=== PATIENT | female | born 1960 | race African-American/Black ===

== ENCOUNTER 2016-07-20 11:51 | Emergency (ER) | payer MEDICAID ==
[~2016-07-20] VITALS: Ht 157.5 cm; Wt 106.6 kg
[~2016-07-20 11:51] MED LIST: ASPI81CH43 PO; BENA20TA4; NOVOLIN 70/30 SUBCUT; SIMVPOW2 PO
[2016-07-20 14:20] VITALS: BP 132/80
== END 2016-07-20 14:22 | disposition home or self-care (01) ==
LOC: ER 11:54
DX: M75.42 Impingement syndrome of left shoulder (principal); E11.9 Type 2 diabetes mellitus without complications; E78.5 Hyperlipidemia, unspecified; I10 Essential (primary) hypertension; Z90.710 Acquired absence of both cervix and uterus; Z87.891 Personal history of nicotine dependence; Z88.6 Allergy status to analgesic agent
CPT/HCPCS: 29105; 73030

== ENCOUNTER 2016-10-31 12:58 | Emergency (ER) | payer MEDICAID ==
[~2016-10-31] VITALS: Ht 157.5 cm; Wt 100.7 kg
[2016-10-31 15:00] VITALS: BP 137/71
== END 2016-10-31 16:00 | disposition home or self-care (01) ==
LOC: ER 12:58
DX: S63.602A Unspecified sprain of left thumb, initial encounter (principal); X50.1XXA Overexertion from prolonged static or awkward postures, initial encounter; Y93.B9 Activity, other involving muscle strengthening exercises; Y99.8 Other external cause status; Y92.89 Other specified places as the place of occurrence of the external cause
CPT/HCPCS: 73130

== ENCOUNTER 2016-11-20 14:50 | Emergency (ER) | payer MEDICAID ==
[~2016-11-20] VITALS: Ht 157.5 cm; Wt 101.2 kg
[~2016-11-20 14:50] MED LIST changes: +BENA20TA14; -BENA20TA4
[2016-11-20 15:01] VITALS: BP 127/84
[2016-11-20] MEDS ORDERED: SILVER SULFADIAZINE 1 % TOPICAL CREAM 50GM TOP ONE (17:30)
== END 2016-11-20 17:53 | disposition home or self-care (01) ==
LOC: EDBD 14:50 → ER 14:55
DX: T25.212A Burn of second degree of left ankle, initial encounter (principal); T31.11 Burns involving 10-19% of body surface with 10-19% third degree burns; E11.9 Type 2 diabetes mellitus without complications; I10 Essential (primary) hypertension; E78.5 Hyperlipidemia, unspecified; Z88.0 Allergy status to penicillin; Z79.4 Long term (current) use of insulin; Z79.82 Long term (current) use of aspirin; Z79.899 Other long term (current) drug therapy; Z87.891 Personal history of nicotine dependence; X11.8XXA Contact with other hot tap-water, initial encounter; Y93.89 Activity, other specified; Y92.89 Other specified places as the place of occurrence of the external cause; Y99.8 Other external cause status
CPT/HCPCS: 16020

== ENCOUNTER 2017-06-07 14:21 | Emergency (ER) | payer MEDICAID ==
[~2017-06-07] VITALS: Ht 157.5 cm; Wt 99.8 kg
[2017-06-07 15:10] LABS: Urine Bilirubin Negative (Negative); Urine Blood Negative /uL (Negative); Urine Color Yellow (Yellow); Urine Glucose 4+ mg/dL (Normal); Urine Ketone Negative (Negative); Urine Nitrite Negative (Negative); Urine RBC 1 /hpf (0 - 4); Urine Squamous Epithelial Cell FEW /hpf (<5); Urine Urobilinogen Normal (Negative)
[2017-06-07 15:12] LABS: Basophils # (auto) 0 uL; Eosinophils # (auto) 0 uL; Lymphocytes # (auto) 1.5 uL; Monocytes # (auto) 0.4 uL; Red Cell Distribution Width 13.6 % (11.8-14.3)
[2017-06-07 15:14] LABS: Basophils % (auto) 0.7 % (0.0-2.0); Eosinophils % (auto) 0.9 % (0.0-7.0); Lymphocytes % (auto) 30.1 % (10.0-50.0); Mean Corpuscular Hemoglobin 26.9 pg (28.0-32.0); Mean Corpuscular Hgb Conc. 32.7 g/dL (32.0-36.0); Mean Corpuscular Volume 82.3 fL (80.0-100.0); Mean Platelet Volume 9.1 fL (6.9-10.8); Monocytes % (auto) 7.6 % (0.0-12.0); Neutrophils % (auto) 60.7 % (37.0-80.0); Nucleated Red Blood Cells % 0.2 %; Platelet Count (auto) 185 10^3/uL (140-450); White Blood Cell 4.9 10^3/uL (4.4-10.8)
[2017-06-07 15:33] LABS: Albumin 3.8 g/dL (3.4-5.0); BUN/Creatinine Ratio 15.5; Bilirubin, Total 0.3 mg/dL (0.2-1.0); Calcium 8.7 mg/dL (8.5-10.1); Potassium 4.1 mmol/L (3.5-5.1); Total Protein 7.5 g/dL (6.4-8.2)
[2017-06-08] MEDS: MORPHINE SULF INJ 2 MG/ML SYRINGE 1ML IV ONE (00:55)
[2017-06-08] MEDS: HYDROmorphone HCL 2 MG/ML VL IV ONE (01:01)
[2017-06-08] MEDS: ONDANSETRON HCL 4 MG/2 ML VIAL IV ONE ×2 (01:01→03:10)
[2017-06-08] MEDS: SODIUM CHLORIDE 0.9% 1,000 ML IV ONE (03:10)
[2017-06-08 04:20] VITALS: BP 150/87
== END 2017-06-08 05:05 | disposition home or self-care (01) ==
LOC: ER 14:21
DX: N83.201 Unspecified ovarian cyst, right side (principal); N83.202 Unspecified ovarian cyst, left side; I10 Essential (primary) hypertension; E11.9 Type 2 diabetes mellitus without complications; E78.5 Hyperlipidemia, unspecified; Z90.710 Acquired absence of both cervix and uterus; Z87.891 Personal history of nicotine dependence; Z79.82 Long term (current) use of aspirin; Z79.4 Long term (current) use of insulin; Z88.6 Allergy status to analgesic agent
CPT/HCPCS: 36415; 74176; 76830; 76856; 80053; 81001; 82962; 85025; 96361; 96374; 96375; 96376; 99285; J1170; J2405; J7030

== ENCOUNTER 2017-08-12 20:58 | Emergency (ER) | payer MEDICAID ==
[~2017-08-12] VITALS: Ht 170.2 cm; Wt 90.7 kg
[2017-08-12 21:09] VITALS: BP 140/86
== END 2017-08-12 21:28 | disposition left against medical advice (07) ==
LOC: EDBD 20:58 → ER 21:02
DX: M25.532 Pain in left wrist (principal); Z53.21 Procedure and treatment not carried out due to patient leaving prior to being seen by health care provider

== ENCOUNTER 2017-08-13 08:40 | Emergency (ER) | payer MEDICAID ==
[~2017-08-13] VITALS: Ht 157.5 cm; Wt 101.2 kg
[2017-08-13 09:46] VITALS: BP 152/69
== END 2017-08-13 10:56 | disposition home or self-care (01) ==
LOC: ER 08:40
DX: G56.01 Carpal tunnel syndrome, right upper limb (principal); E11.9 Type 2 diabetes mellitus without complications; E78.5 Hyperlipidemia, unspecified; I10 Essential (primary) hypertension; Z90.710 Acquired absence of both cervix and uterus; Z88.8 Allergy status to other drugs, medicaments and biological substances
CPT/HCPCS: 73130

== ENCOUNTER 2018-01-14 09:39 | Emergency (ER) | payer MEDICAID ==
[~2018-01-14] VITALS: Ht 157.5 cm; Wt 99.3 kg
[2018-01-14 11:09] VITALS: BP 133/61
== END 2018-01-14 14:01 | disposition home or self-care (01) ==
LOC: ER 09:41
DX: R21 Rash and other nonspecific skin eruption (principal); E11.9 Type 2 diabetes mellitus without complications; E78.5 Hyperlipidemia, unspecified; I10 Essential (primary) hypertension; Z88.6 Allergy status to analgesic agent; Z79.899 Other long term (current) drug therapy; Z90.710 Acquired absence of both cervix and uterus; Z87.891 Personal history of nicotine dependence

== ENCOUNTER 2022-10-11 17:40 | Inpatient (IN) | payer MEDICAID ==
[~2022-10-11] VITALS: Ht 157.5 cm; Wt 99.0 kg
[2022-10-11 18:34] LABS: Basophils # (auto) 0 10 ^3/uL (0-0.2); Basophils % (auto) 0.3 % (0.0-2.0); Eosinophils # (auto) 0 10 ^3/uL (0-0.8); White Blood Cell 8.2 10^3/uL (4.4-10.8)
[2022-10-11 18:35] LABS: Hematocrit 43.5 % (36.0-46.0); Hemoglobin 14.1 g/dL (12.2-16.2); Lymphocytes # (auto) 0.4 10 ^3/uL (0.4-5.4); Lymphocytes % (auto) 5.1 % (10.0-50.0); Mean Corpuscular Hemoglobin 27.2 pg (28.0-32.0); Mean Corpuscular Hgb Conc. 32.3 g/dL (32.0-36.0); Mean Corpuscular Volume 84.2 fL (80.0-100.0); Monocytes % (auto) 11.8 % (0.0-12.0); Neutrophils # (auto) 6.8 10 ^3/uL (1.6-8.6); Neutrophils % (auto) 82.8 % (37.0-80.0); Red Blood Cells 5.17 10^6/uL (4.0-5.20); Red Cell Distribution Width 13.7 % (11.8-14.3)
[2022-10-11 18:48] LABS: Albumin 3.1 g/dL (3.4-5.0); Calcium 8.9 mg/dL (8.5-10.1); Potassium 4.2 mmol/L (3.5-5.1)
[2022-10-11 18:57] LABS: Bilirubin, Total 0.8 mg/dL (0.2-1.0); Total Protein 7.1 g/dL (6.4-8.2)
[2022-10-11] MEDS ORDERED: SODIUM CHLORIDE 0.9% 1,000 ML IV ONE (19:45)
[2022-10-11] MEDS ORDERED: InsuLIN REG 1unit/0.01ml Soln (100units/ml) IV ONE (19:45)
[2022-10-11] MEDS ORDERED: cefTRIAXone 1GM/50ML D5W 50 ML IV ONE (20:00)
[2022-10-11] MEDS ORDERED: SODIUM BICARBONATE 8.4 % INJ 50ML VIAL IV ONE (20:00)
[2022-10-11 20:14] LABS: CRP High Sensitivity 28.8 mg/dL (< 0.3)
[2022-10-11 20:47] LABS: Urine Bacteria NONE SEEN /hpf (None Seen); Urine Blood 1+ /uL (Negative); Urine Hyaline Cast FEW /lpf (0 - 2); Urine Mucus FEW (None Seen); Urine Specific Gravity 1.023 (1.001-1.035); Urine WBC 2 /hpf (0 - 5)
[2022-10-11] MEDS ORDERED: DEXTROSE (50%) 50ML SYRG IV PRN (21:45)
[2022-10-11] MEDS ORDERED: InsuLIN R (HUMAN) 100 UNITS in SODIUM CHL 0.9% 99 ML IV SCH (21:45)
[2022-10-11] MEDS ORDERED: ONDANSETRON HCL 4 MG/2 ML VIAL IV ONE (21:45)
[2022-10-11 22:00] LABS: Magnesium 1.9 mg/dL (1.6-2.6); Phosphorus 2.4 mg/dL (2.5-4.90)
[2022-10-11] MEDS: ACCU-CHEK COMFORT CURVE STRIP VI SCH (22:43)
[2022-10-11] MEDS ORDERED: POTASSIUM CHL 20 Meq TABLET PO ONE (23:00)
[2022-10-11] MEDS: SODIUM CHLORIDE 0.9% 1,000 ML IV SCH ×2 (23:30→23:45)
[2022-10-11] MEDS ORDERED: HYDROcodone-ACET 5/325MG TAB PO PRN (23:45)
[2022-10-11] MEDS ORDERED: MORPHINE SULFATE INJ 2 MG/ml SYRG IV PRN (23:45)
[2022-10-11] MEDS ORDERED: NITROGLYCERIN 0.4 MG SL TAB SL PRN (23:45)
[2022-10-12] MEDS: ACCU-CHEK COMFORT CURVE STRIP VI SCH ×14 (00:01→19:52)
[2022-10-12] MEDS: METOCLOPRAMIDE HCL 5MG/ml INJ 2ml VIAL IV PRN ×3 (00:24→15:17)
[2022-10-12 00:59] LABS: Albumin 2.9 g/dL (3.4-5.0); BUN/Creatinine Ratio 17.1 (10.0-20.0); Calcium 9.2 mg/dL (8.5-10.1); Potassium 3.6 mmol/L (3.5-5.1)
[2022-10-12 01:02] LABS: Bilirubin, Total 0.6 mg/dL (0.2-1.0); Total Protein 7.9 g/dL (6.4-8.2)
[2022-10-12] MEDS: SODIUM CHLORIDE 0.9% 1,000 ML IV SCH ×3 (01:39→10:25)
[2022-10-12] MEDS ORDERED: SODIUM CHLORIDE 0.9% 1,000 ML IV SCH (01:45)
[2022-10-12] MEDS ORDERED: D5W/SOD CHL 0.45%/KCL 20MEQ 1,000 ML IV ONE ×2 (01:45→14:30)
[2022-10-12] MEDS: ONDANSETRON HCL 4 MG/2 ML VIAL IV PRN ×2 (03:11→08:06)
[2022-10-12] MEDS: ACETAMINOPHEN 325 MG TAB PO PRN ×3 (04:03→21:01)
[2022-10-12] MEDS: hydrALAZINE HCL 20 MG/ML VL IV PRN ×3 (04:20→22:08)
[2022-10-12] MEDS ORDERED: InsuLIN R (HUMAN) 100 UNITS in SODIUM CHL 0.9% 99 ML IV SCH (04:45)
[2022-10-12 05:48] LABS: Albumin 2.5 g/dL (3.4-5.0); Potassium 3.9 mmol/L (3.5-5.1)
[2022-10-12 05:50] LABS: BUN/Creatinine Ratio 18.2 (10.0-20.0)
[2022-10-12 05:53] LABS: Bilirubin, Total 0.6 mg/dL (0.2-1.0)
[2022-10-12 06:01] LABS: Basophils # (auto) 0 10 ^3/uL (0-0.2); Basophils % (auto) 0.4 % (0.0-2.0); Eosinophils # (auto) 0 10 ^3/uL (0-0.8); Hematocrit 36.3 % (36.0-46.0); Lymphocytes # (auto) 0.5 10 ^3/uL (0.4-5.4); Lymphocytes % (auto) 5.9 % (10.0-50.0); Mean Corpuscular Hemoglobin 27.2 pg (28.0-32.0); Mean Corpuscular Hgb Conc. 32.9 g/dL (32.0-36.0); Mean Corpuscular Volume 82.7 fL (80.0-100.0); Monocytes # (auto) 1.1 10 ^3/uL (0-1.3); Neutrophils % (auto) 78.7 % (37.0-80.0); Nucleated Red Blood Cells % 0.1 %; Red Cell Distribution Width 13.1 % (11.8-14.3); White Blood Cell 7.6 10^3/uL (4.4-10.8)
[2022-10-12] MEDS: ASPirin 81 mg TAB PO SCH (09:32)
[2022-10-12] MEDS ORDERED: MORPHINE SULFATE INJ 2 MG/ml SYRG IV ONE (10:15)
[2022-10-12] MEDS ORDERED: ONDANSETRON HCL 4 MG/2 ML VIAL IV ONE (10:15)
[2022-10-12] MEDS: FAMOTIDINE (10MG/ML) 2ML VL IV SCH (10:25)
[2022-10-12] MEDS ORDERED: DICYCLOMINE HCL (10MG/ML) 2 ML AMPULE IM PRN (10:45)
[2022-10-12] MEDS ORDERED: SODIUM PHOSPHATES 20 MEQ in SODIUM CHL 0.9% 100 ML IV ONE (10:45)
[2022-10-12] MEDS ORDERED: PROCHLORPERAZINE EDISYLATE 5 MG/ML 2ML VIAL IV PRN (10:45)
[2022-10-12] MEDS ORDERED: SODIUM CHLORIDE 0.9% 1,000 ML IV ONE (11:00)
[2022-10-12] MEDS ORDERED: INSULIN LANTUS (GLARGINE) 1 /0.01ml (100units/ml) SC ONE (11:00)
[2022-10-12 12:10] LABS: Calcium 8.8 mg/dL (8.5-10.1); Potassium 4.1 mmol/L (3.5-5.1)
[2022-10-12 12:11] LABS: Alcohol, Urine < 3.0 mg/dL (0-10); Amphetamine Screen, Urine NEGATIVE (NEGATIVE); Barbiturate Scree,Urine NEGATIVE (NEGATIVE); Benzodiazephine Screen, Urine NEGATIVE (NEGATIVE); Cannabinoid Screen, Urine NEGATIVE (NEGATIVE); Cocaine Screen, Urine NEGATIVE (NEGATIVE); Opiate Scree,Urine NEGATIVE (NEGATIVE); Phencyclidine Screen, Urine NEGATIVE (NEGATIVE)
[2022-10-12 12:12] LABS: BUN/Creatinine Ratio 14.3 (10.0-20.0)
[2022-10-12 12:59] LABS: Cholesterol 165 mg/dL (< 200); HDL Cholesterol 71 mg/dL (40-59); LDL Cholesterol 83 mg/dL (< 100); Triglycerides 63 mg/dL (< 150)
[2022-10-12] MEDS ORDERED: ENOXAPARIN SOD 120 MG/0.8 ML SYRINGE SC SCH ×2 (14:46→15:00)
[2022-10-12] MEDS ORDERED: IOHEXOL 350 MG/ML 100ML IJ ONE (14:57)
[2022-10-12 15:18] LABS: INR 0.99 (0.9-1.15)
[2022-10-12] MEDS ORDERED: ACETAMINOPHEN IV 1000 MG/100ML (10MG/ML) IV PRN ×2 (16:00→16:15)
[2022-10-12] MEDS ORDERED: SOD CHL 0.45% 1,000 ML IV SCH (16:15)
[2022-10-12] MEDS ORDERED: AZITHROMYCIN 500MG/ 250ML 250 ML IV ONE (16:45)
[2022-10-12 17:39] LABS: BUN/Creatinine Ratio 13.3 (10.0-20.0); Calcium 8.3 mg/dL (8.5-10.1); Potassium 3.3 mmol/L (3.5-5.1)
[2022-10-12] MEDS ORDERED: DEXTROSE (50%) 50ML SYRG IV PRN (20:30)
[2022-10-12] MEDS: cefTRIAXone 1GM/50ML D5W 50 ML IV SCH (21:45)
[2022-10-12] MEDS ORDERED: ATORVASTATIN 20 MG TAB PO SCH (22:00)
[2022-10-12] MEDS ORDERED: CARVEDILOL 12.5 MG TAB PO ONE (22:00)
[2022-10-12 23:35] LABS: BUN/Creatinine Ratio 10.8 (10.0-20.0); Calcium 8.3 mg/dL (8.5-10.1); Potassium 3.5 mmol/L (3.5-5.1)
[2022-10-13] MEDS: ACCU-CHEK COMFORT CURVE STRIP VI SCH ×6 (00:19→20:00)
[2022-10-13] MEDS: IPRATROPIUM BROM 0.5 MG/2.5ML INH SOL NEB PRN ×2 (00:26→04:46)
[2022-10-13] MEDS: ALBUTEROL SULF 2.5 MG/0.5ML(0.5%) NEB SOLN NEB PRN ×2 (00:26→04:47)
[2022-10-13] MEDS: InsuLIN REG 1unit/0.01ml Soln (100units/ml) SC SCH ×6 (00:27→20:49)
[2022-10-13] MEDS ORDERED: guaiFENesin-DM 100/10mg/5ml SYR PO ONE (03:15)
[2022-10-13 04:18] VITALS: BP 134/60
[2022-10-13] MEDS ORDERED: dilTIAZem 25 MG/5 ML VIAL IV ONE (05:00)
[2022-10-13] MEDS ORDERED: methylPREDNISolone SOD SUCC 125 MG/2 ML VL IV ONE (05:15)
[2022-10-13] MEDS ORDERED: dilTIAZem 125mg/125ml BAG KIT 100 ML IV SCH (05:45)
[2022-10-13 05:51] LABS: Basophils # (auto) 0 10 ^3/uL (0-0.2); Basophils % (auto) 0.2 % (0.0-2.0); Eosinophils # (auto) 0 10 ^3/uL (0-0.8); Hematocrit 36.6 % (36.0-46.0); Hemoglobin 12.2 g/dL (12.2-16.2); Lymphocytes # (auto) 0.3 10 ^3/uL (0.4-5.4); Lymphocytes % (auto) 3.7 % (10.0-50.0); Mean Corpuscular Hemoglobin 27.6 pg (28.0-32.0); Mean Corpuscular Hgb Conc. 33.2 g/dL (32.0-36.0); Mean Corpuscular Volume 83.2 fL (80.0-100.0); Monocytes # (auto) 0.8 10 ^3/uL (0-1.3); Monocytes % (auto) 11.1 % (0.0-12.0); Neutrophils # (auto) 5.9 10 ^3/uL (1.6-8.6); Nucleated Red Blood Cells % 0.1 %; Red Cell Distribution Width 13.8 % (11.8-14.3); White Blood Cell 6.9 10^3/uL (4.4-10.8)
[2022-10-13 06:10] LABS: Potassium 3.8 mmol/L (3.5-5.1)
[2022-10-13 06:17] LABS: Albumin 2.5 g/dL (3.4-5.0); Bilirubin, Total 0.6 mg/dL (0.2-1.0); Calcium 7.9 mg/dL (8.5-10.1); Magnesium 1.9 mg/dL (1.6-2.6); Phosphorus 1.2 mg/dL (2.5-4.90); Total Protein 5.9 g/dL (6.4-8.2)
[2022-10-13] MEDS: AZITHROMYCIN 500MG/ 250ML 250 ML IV SCH (09:22)
[2022-10-13] MEDS: ASPirin 81 mg TAB PO SCH (09:22)
[2022-10-13] MEDS ORDERED: ENOXAPARIN SOD 120 MG/0.8 ML SYRINGE SC SCH (10:00)
[2022-10-13] MEDS ORDERED: CARVEDILOL 12.5 MG TAB PO SCH (10:00)
[2022-10-13] MEDS: methylPREDNISolone SOD SUCC 40 MG/ML VL IV SCH ×2 (10:00→13:37)
[2022-10-13] MEDS: FAMOTIDINE (10MG/ML) 2ML VL IV SCH (10:00)
[2022-10-13] MEDS ORDERED: INSULIN LANTUS (GLARGINE) 1 /0.01ml (100units/ml) SC SCH (10:00)
[2022-10-13] MEDS ORDERED: VANCOMYCIN PER PHARMACY 0 MG IV SCH (14:15)
[2022-10-13] MEDS: VANCOMYCIN 1GM/250ML 250 ML IV SCH (15:39)
[2022-10-13] MEDS: ONDANSETRON HCL 4 MG/2 ML VIAL IV PRN ×2 (20:23→22:30)
[2022-10-13] MEDS: cefTRIAXone 1GM/50ML D5W 50 ML IV SCH (20:56)
[2022-10-13] MEDS ORDERED: GLIP5TAB12 PO (22:01)
[2022-10-13] MEDS: MORPHINE SULFATE INJ 2 MG/ml SYRG IV PRN (22:29)
[2022-10-13] MEDS: METOPROLOL TARTRATE 50 MG TAB PO SCH (22:30)
[2022-10-13] MEDS: ENOXAPARIN SOD 40 MG/0.4 ML SYRINGE SC SCH (22:30)
[2022-10-14] VITALS (7 sets, daily range): BP systolic 122–141; BP diastolic 61–72
[2022-10-14] MEDS: InsuLIN REG 1unit/0.01ml Soln (100units/ml) SC SCH ×6 (01:47→22:00)
[2022-10-14] MEDS: ACCU-CHEK COMFORT CURVE STRIP VI SCH ×9 (04:24→22:00)
[2022-10-14] MEDS: VANCOMYCIN 1GM/250ML 250 ML IV SCH ×2 (04:24→15:10)
[2022-10-14] MEDS: METOPROLOL TARTRATE 50 MG TAB PO SCH ×2 (09:04→22:05)
[2022-10-14] MEDS: ONDANSETRON HCL 4 MG/2 ML VIAL IV PRN (09:04)
[2022-10-14] MEDS: ASPirin 81 mg TAB PO SCH (09:04)
[2022-10-14] MEDS: MORPHINE SULFATE INJ 2 MG/ml SYRG IV PRN (09:05)
[2022-10-14] MEDS: ENOXAPARIN SOD 40 MG/0.4 ML SYRINGE SC SCH ×2 (09:06→22:05)
[2022-10-14] MEDS: INSULIN LANTUS (GLARGINE) 1 /0.01ml (100units/ml) SC SCH (09:13)
[2022-10-14] MEDS: AZITHROMYCIN 500MG/ 250ML 250 ML IV SCH (10:10)
[2022-10-14] MEDS: DOCUSATE SOD 100 MG CAP PO PRN ×2 (12:23→22:04)
[2022-10-14] MEDS ORDERED: DEXTROSE (50%) 50ML SYRG IV PRN (13:15)
[2022-10-14] MEDS: cefTRIAXone 1GM/50ML D5W 50 ML IV SCH (22:02)
[2022-10-15] MEDS: ACCU-CHEK COMFORT CURVE STRIP VI SCH ×10 (03:40→21:51)
[2022-10-15] MEDS: VANCOMYCIN 1GM/250ML 250 ML IV SCH ×2 (04:23→15:03)
[2022-10-15 05:00] VITALS: BP 121/64
[2022-10-15] MEDS: ONDANSETRON HCL 4 MG/2 ML VIAL IV PRN (06:32)
[2022-10-15] MEDS: MORPHINE SULFATE INJ 2 MG/ml SYRG IV PRN (06:39)
[2022-10-15] MEDS: InsuLIN REG 1unit/0.01ml Soln (100units/ml) SC SCH ×4 (06:40→22:00)
[2022-10-15 06:52] LABS: Basophils # (auto) 0 10 ^3/uL (0-0.2); Basophils % (auto) 0.3 % (0.0-2.0); Eosinophils # (auto) 0 10 ^3/uL (0-0.8); Eosinophils % (auto) 0.1 % (0.0-7.0); Hematocrit 38.2 % (36.0-46.0); Hemoglobin 12.7 g/dL (12.2-16.2); Lymphocytes # (auto) 1.1 10 ^3/uL (0.4-5.4); Lymphocytes % (auto) 14.8 % (10.0-50.0); Mean Corpuscular Hemoglobin 27.2 pg (28.0-32.0); Mean Corpuscular Hgb Conc. 33.1 g/dL (32.0-36.0); Mean Corpuscular Volume 82.2 fL (80.0-100.0); Monocytes # (auto) 1.1 10 ^3/uL (0-1.3); Monocytes % (auto) 13.8 % (0.0-12.0); Neutrophils # (auto) 5.5 10 ^3/uL (1.6-8.6); Nucleated Red Blood Cells % 0.1 %; Red Blood Cells 4.65 10^6/uL (4.0-5.20); White Blood Cell 7.7 10^3/uL (4.4-10.8)
[2022-10-15 07:11] LABS: BUN/Creatinine Ratio 22.4 (10.0-20.0); Calcium 8.6 mg/dL (8.5-10.1); Potassium 3.2 mmol/L (3.5-5.1)
[2022-10-15 08:00] VITALS: BP 148/69
[2022-10-15 09:00] VITALS: BP 148/69
[2022-10-15] MEDS: METOPROLOL TARTRATE 50 MG TAB PO SCH ×2 (09:43→21:45)
[2022-10-15] MEDS: AZITHROMYCIN 500MG/ 250ML 250 ML IV SCH (09:43)
[2022-10-15] MEDS: ASPirin 81 mg TAB PO SCH (09:43)
[2022-10-15] MEDS: ENOXAPARIN SOD 40 MG/0.4 ML SYRINGE SC SCH ×2 (09:44→21:39)
[2022-10-15] MEDS: INSULIN LANTUS (GLARGINE) 1 /0.01ml (100units/ml) SC SCH (09:51)
[2022-10-15 13:00] VITALS: BP 121/70
[2022-10-15] MEDS ORDERED: POTASSIUM CHLORIDE 40 MEQ in SOD CHL 0.45% 1,000 ML IV SCH (13:00)
[2022-10-15] MEDS ORDERED: MAGNESIUM SULFATE 1GM/100ML 100 ML IV ONE (16:45)
[2022-10-15] MEDS ORDERED: POTASSIUM EFFERVESENT TAB 25 MEQ PO ONE (16:45)
[2022-10-15 17:00] VITALS: BP 146/79
[2022-10-15] MEDS: cefTRIAXone 1GM/50ML D5W 50 ML IV SCH (21:39)
[2022-10-15 22:00] VITALS: BP 131/63
[2022-10-16] MEDS: ACCU-CHEK COMFORT CURVE STRIP VI SCH ×5 (04:00→12:37)
[2022-10-16 05:10] VITALS: BP 135/63
[2022-10-16 05:53] LABS: Hematocrit 39.5 % (36.0-46.0); Mean Corpuscular Hemoglobin 27.1 pg (28.0-32.0); Mean Corpuscular Hgb Conc. 32.9 g/dL (32.0-36.0); Mean Corpuscular Volume 82.2 fL (80.0-100.0); Red Cell Distribution Width 13.8 % (11.8-14.3); White Blood Cell 6.3 10^3/uL (4.4-10.8)
[2022-10-16 06:09] LABS: Calcium 8.2 mg/dL (8.5-10.1); Potassium 3.8 mmol/L (3.5-5.1)
[2022-10-16 06:15] LABS: BUN/Creatinine Ratio 15.5 (10.0-20.0); Bilirubin, Total 0.4 mg/dL (0.2-1.0); Total Protein 5.7 g/dL (6.4-8.2)
[2022-10-16 06:24] LABS: Basophils % (manual) 0 (0.0-2.0); Blast Cells 0; Eosinophils % (manual) 0 (0-7); Metamyelocytes % 0; Myelocytes % 0; Promyelocytes % 0; Reactive Lymphocytes 0
[2022-10-16] MEDS: VANCOMYCIN 1GM/250ML 250 ML IV SCH ×2 (06:37→15:00)
[2022-10-16] MEDS: InsuLIN REG 1unit/0.01ml Soln (100units/ml) SC SCH ×2 (07:00→12:38)
[2022-10-16 08:33] LABS: Band Neutrophils % (manual) 6; Lymphocytes % (manual) 38 (10.0-50.0); Monocytes % (manual) 7 (0-12)
[2022-10-16 09:00] VITALS: BP 151/69
[2022-10-16 09:24] VITALS: BP 135/63
[2022-10-16] MEDS: ONDANSETRON HCL 4 MG/2 ML VIAL IV PRN (09:25)
[2022-10-16] MEDS: AZITHROMYCIN 500MG/ 250ML 250 ML IV SCH (09:26)
[2022-10-16] MEDS: ASPirin 81 mg TAB PO SCH (09:27)
[2022-10-16] MEDS: METOPROLOL TARTRATE 50 MG TAB PO SCH (09:27)
[2022-10-16] MEDS: ENOXAPARIN SOD 40 MG/0.4 ML SYRINGE SC SCH (09:35)
[2022-10-16] MEDS: INSULIN LANTUS (GLARGINE) 1 /0.01ml (100units/ml) SC SCH (09:36)
[2022-10-16] MEDS ORDERED: VERAPAMIL HCL 120 mg ER tab PO SCH (10:00)
[2022-10-16] MEDS ORDERED: DOXY-346 PO (11:38)
[2022-10-16] MEDS ORDERED: VERA1TAB24 PO (11:38)
[2022-10-16] MEDS ORDERED: ONDA-144 PO (11:38)
[2022-10-16 12:23] VITALS: BP 151/69
[2022-10-16 13:00] VITALS: BP 127/64
== END 2022-10-16 16:00 | disposition home or self-care (01) | DRG 720 ==
LOC: EDBD 17:40 → ER 17:40 → OVERFLOW 23:35 → TELE-WESTW 10-13 21:34
PROVIDERS: ADMIT Nurse Practitioner Family; ATTEND Nurse Practitioner Acute Care
DX: A41.9 Sepsis, unspecified organism (principal); J96.01 Acute respiratory failure with hypoxia; N17.0 Acute kidney failure with tubular necrosis; E11.10 Type 2 diabetes mellitus with ketoacidosis without coma; E43 Unspecified severe protein-calorie malnutrition; J15.9 Unspecified bacterial pneumonia; E86.0 Dehydration; Z20.822 Contact with and (suspected) exposure to COVID-19; D50.0 Iron deficiency anemia secondary to blood loss (chronic); I10 Essential (primary) hypertension; E78.5 Hyperlipidemia, unspecified; E66.9 Obesity, unspecified; I16.9 Hypertensive crisis, unspecified; J98.11 Atelectasis; E78.00 Pure hypercholesterolemia, unspecified; I48.0 Paroxysmal atrial fibrillation; Z79.4 Long term (current) use of insulin; Z90.710 Acquired absence of both cervix and uterus; Z87.891 Personal history of nicotine dependence; Z88.6 Allergy status to analgesic agent; Z68.41 Body mass index [BMI] 40.0-44.9, adult
CPT/HCPCS: 36415; 36600; 71045; 71275; 74176; 80048; 80053; 80061; 80202; 80307; 81001; 82010; 82805; 82962; 83036; 83605; 83690; 83735; 83880; 83930; 84100; 84443; 84484; 85007; 85025; 85027; 85379; 85610; 86141; 86677; 87040; 87426; 93306; 94640; 96365; 96375; G0378; J0131; J0696; J1815; J2405; J3490

== ENCOUNTER 2022-12-09 14:55 | Emergency (ER) | payer MEDICAID ==
[~2022-12-09] VITALS: Ht 170.2 cm; Wt 83.0 kg
[~2022-12-09 14:55] MED LIST changes: +BENA-36; -BENA20TA14; +DOXY-346 PO; +GLIP5TAB12 PO; -NOVOLIN 70/30 SUBCUT; +ONDA-144 PO; +VERA120T92 PO
[2022-12-09] MEDS ORDERED: ASPirin 81 mg TAB PO ONE (15:15)
[2022-12-09 15:24] LABS: Basophils # (auto) 0 10 ^3/uL (0-0.2); Lymphocytes # (auto) 1.7 10 ^3/uL (0.4-5.4); Mean Corpuscular Volume 82.1 fL (80.0-100.0); Monocytes # (auto) 0.3 10 ^3/uL (0-1.3); Nucleated Red Blood Cells % 0.1 %
[2022-12-09 15:26] LABS: Basophils % (auto) 0.9 % (0.0-2.0); Eosinophils # (auto) 0.1 10 ^3/uL (0-0.8); Eosinophils % (auto) 1.3 % (0.0-7.0); Hematocrit 38.3 % (36.0-46.0); Hemoglobin 12.4 g/dL (12.2-16.2); Lymphocytes % (auto) 40.7 % (10.0-50.0); Mean Corpuscular Hemoglobin 26.6 pg (28.0-32.0); Mean Corpuscular Hgb Conc. 32.4 g/dL (32.0-36.0); Monocytes % (auto) 7.9 % (0.0-12.0); Neutrophils % (auto) 49.2 % (37.0-80.0); Red Blood Cells 4.66 10^6/uL (4.0-5.20); Red Cell Distribution Width 13.6 % (11.8-14.3); White Blood Cell 4.1 10^3/uL (4.4-10.8)
[2022-12-09 15:35] LABS: Albumin 3.5 g/dL (3.4-5.0); Calcium 9.3 mg/dL (8.5-10.1); Potassium 3.5 mmol/L (3.5-5.1)
[2022-12-09 15:38] LABS: BUN/Creatinine Ratio 18.4 (10.0-20.0); Bilirubin, Total 0.4 mg/dL (0.2-1.0)
[2022-12-09 18:00] VITALS: BP 159/87
== END 2022-12-09 18:01 | disposition home or self-care (01) ==
LOC: ER 14:55
DX: R07.89 Other chest pain (principal); E11.9 Type 2 diabetes mellitus without complications; E78.5 Hyperlipidemia, unspecified; I10 Essential (primary) hypertension; Z90.710 Acquired absence of both cervix and uterus; Z88.6 Allergy status to analgesic agent
CPT/HCPCS: 36415; 71045; 80053; 82962; 83880; 84484; 85025; 93005

== ENCOUNTER 2023-05-10 12:46 | Emergency (ER) | payer MEDICAID | END 2023-05-10 13:18 | disposition left against medical advice (07) | LOC: ER 12:46 | DX: R10.9 Unspecified abdominal pain (principal); Z53.21 Procedure and treatment not carried out due to patient leaving prior to being seen by health care provider ==

== ENCOUNTER 2023-05-15 11:58 | Inpatient (IN) | payer MEDICAID ==
[~2023-05-15] VITALS: Ht 157.5 cm; Wt 72.5 kg
[2023-05-15] MEDS ORDERED: ONDANSETRON HCL 4 MG/2 ML VIAL IV ONE (12:15)
[2023-05-15] MEDS ORDERED: SODIUM CHLORIDE 0.9% 1,000 ML IV ONE (12:15)
[2023-05-15 13:16] LABS: Basophils # (auto) 0 10 ^3/uL (0-0.2); Eosinophils # (auto) 0 10 ^3/uL (0-0.8); Eosinophils % (auto) 0.3 % (0.0-7.0); Lymphocytes # (auto) 1.3 10 ^3/uL (0.4-5.4); Neutrophils % (auto) 68.7 % (37.0-80.0); Nucleated Red Blood Cells % 0.1 %
[2023-05-15 13:19] LABS: Basophils % (auto) 0.3 % (0.0-2.0); Hematocrit 42.5 % (36.0-46.0); Hemoglobin 13.8 g/dL (12.2-16.2); Lymphocytes % (auto) 21.7 % (10.0-50.0); Mean Corpuscular Hemoglobin 26.3 pg (28.0-32.0); Mean Corpuscular Hgb Conc. 32.4 g/dL (32.0-36.0); Mean Corpuscular Volume 81.4 fL (80.0-100.0); Monocytes # (auto) 0.5 10 ^3/uL (0-1.3); Neutrophils # (auto) 4.2 10 ^3/uL (1.6-8.6); Red Blood Cells 5.22 10^6/uL (4.0-5.20); Red Cell Distribution Width 13.9 % (11.8-14.3); White Blood Cell 6.1 10^3/uL (4.4-10.8)
[2023-05-15 13:42] LABS: Alanine Aminotransferase 18 U/L (7-40); Albumin 4.5 g/dL (3.2-4.8); Alkaline Phosphatase 93 U/L (46-116); Anion Gap 13 (5-15); Aspartate Aminotransferase 17 U/L (13-40); BUN/Creatinine Ratio 17.9 (10.0-20.0); Blood Urea Nitrogen 20 mg/dL (9-23); Calcium 9.9 mg/dL (8.5-10.1); Carbon Dioxide 31 mmol/L (20-30); Chloride 100 mmol/L (98-107); Glucose 129 mg/dL (74-106); Potassium 3.3 mmol/L (3.5-5.1); Sodium 144 mmol/L (136-145)
[2023-05-15 13:43] LABS: Bilirubin, Total 0.5 mg/dL (0.2-1.0); Total Protein 7.2 g/dL (5.7-8.2)
[2023-05-15 14:49] LABS: Lipase 26 U/L (12-53)
[2023-05-15 20:52] LABS: Urine Bacteria MANY /hpf (None Seen); Urine Blood Negative /uL (Negative); Urine Clarity HAZY (Clear); Urine Color Yellow (Yellow); Urine Mucus FEW (None Seen); Urine Protein, UAD 1+ (Negative); Urine Specific Gravity 1.032 (1.001-1.035); Urine WBC 10 /hpf (0 - 5); Urine pH 5.5 (5.0-8.0)
[2023-05-15] MEDS ORDERED: levoFLOXacin 500MG 100 ML IV ONE (21:15)
[2023-05-15] MEDS ORDERED: metroNIDAZOLE 500MG/100ML 100 ML IV ONE (21:15)
[2023-05-15] MEDS ORDERED: HYDROcodone-ACET 5/325MG TAB PO PRN (23:00)
[2023-05-15] MEDS ORDERED: DEXTROSE (50%) 50ML SYRG IV PRN (23:00)
[2023-05-15] MEDS ORDERED: NITROGLYCERIN 0.4 MG SL TAB SL PRN (23:00)
[2023-05-15] MEDS ORDERED: ACETAMINOPHEN 325 MG TAB PO PRN (23:00)
[2023-05-15] MEDS ORDERED: MORPHINE SULFATE INJ 2 MG/ml SYRG IV PRN ×2 (23:00)
[2023-05-15] MEDS ORDERED: SODIUM CHLORIDE 0.9% 1,000 ML IV SCH (23:30)
[2023-05-15] MEDS ORDERED: POTASSIUM CHLORIDE 40 MEQ, LIDOCAINE 1% (LOCAL ANESTH.) 4 ML in SODIUM CHL 0.9% 250 ML IV ONE (23:45)
[2023-05-15 23:54] VITALS: PULSE 104; RESP 16; O2SAT 97
[2023-05-16 00:02] LABS: Sodium Urine < 10 mmol/L (40-220)
[2023-05-16 00:06] LABS: Protein, Urine 78.9 mg/dL (0.0-11.9)
[2023-05-16] MEDS ORDERED: POTASSIUM CHL 20 Meq TABLET PO ONE (03:15)
[2023-05-16 03:51] VITALS: PULSE 84; RESP 18; O2SAT 95
[2023-05-16 05:00] VITALS: BP 129/66; PULSE 100; RESP 18; TEMP 97.9; O2SAT 94
[2023-05-16] MEDS ORDERED: PIPERACILLIN-TAZOB 3.375GM 100 ML IV SCH (06:00)
[2023-05-16] MEDS: METOCLOPRAMIDE HCL 5MG/ml INJ 2ml VIAL IV SCH ×3 (06:24→22:00)
[2023-05-16] MEDS: InsuLIN REG 1unit/0.01ml Soln (100units/ml) SC SCH ×4 (06:28→22:00)
[2023-05-16] MEDS: ACCU-CHEK COMFORT CURVE STRIP VI SCH ×4 (06:28→22:04)
[2023-05-16 07:20] LABS: Basophils # (auto) 0 10 ^3/uL (0-0.2); Eosinophils # (auto) 0.1 10 ^3/uL (0-0.8); Hemoglobin 12.3 g/dL (12.2-16.2); Lymphocytes # (auto) 1.7 10 ^3/uL (0.4-5.4); Monocytes # (auto) 0.9 10 ^3/uL (0-1.3); Neutrophils # (auto) 3.8 10 ^3/uL (1.6-8.6); Nucleated Red Blood Cells % 0.1 %; White Blood Cell 6.5 10^3/uL (4.4-10.8)
[2023-05-16 07:24] LABS: Basophils % (auto) 0.2 % (0.0-2.0); Eosinophils % (auto) 0.9 % (0.0-7.0); Hematocrit 38.9 % (36.0-46.0); Lymphocytes % (auto) 26.9 % (10.0-50.0); Mean Corpuscular Hemoglobin 25.9 pg (28.0-32.0); Mean Corpuscular Hgb Conc. 31.8 g/dL (32.0-36.0); Mean Corpuscular Volume 81.5 fL (80.0-100.0); Monocytes % (auto) 13.5 % (0.0-12.0); Neutrophils % (auto) 58.5 % (37.0-80.0); Red Blood Cells 4.77 10^6/uL (4.0-5.20); Red Cell Distribution Width 13.8 % (11.8-14.3)
[2023-05-16 07:56] LABS: Alanine Aminotransferase 15 U/L (7-40); Albumin 3.7 g/dL (3.2-4.8); Alkaline Phosphatase 77 U/L (46-116); Anion Gap 11 (5-15); Aspartate Aminotransferase 14 U/L (13-40); BUN/Creatinine Ratio 21.3 (10.0-20.0); Blood Urea Nitrogen 19 mg/dL (9-23); Carbon Dioxide 27 mmol/L (20-30); Chloride 107 mmol/L (98-107); Glucose 85 mg/dL (74-106); Potassium 2.9 mmol/L (3.5-5.1); Sodium 145 mmol/L (136-145)
[2023-05-16 07:57] LABS: Bilirubin, Total 0.4 mg/dL (0.2-1.0)
[2023-05-16 08:00] VITALS: BP 129/64; PULSE 98; RESP 20; TEMP 98.5; O2SAT 94
[2023-05-16] MEDS ORDERED: POTASSIUM CHLORIDE 80 MEQ, LIDOCAINE 1% (LOCAL ANESTH.) 6 ML in SODIUM CHL 0.9% 500 ML IV ONE (08:45)
[2023-05-16] MEDS: ASPirin 81 mg TAB PO SCH (10:31)
[2023-05-16] MEDS: VERAPAMIL HCL 120 mg ER tab PO SCH (10:32)
[2023-05-16] MEDS: ONDANSETRON HCL 4 MG/2 ML VIAL IV PRN ×2 (10:32→16:19)
[2023-05-16] MEDS: LACTATED RINGER'S 1,000 ML IV SCH ×2 (10:45→18:14)
[2023-05-16] MEDS ORDERED: PANTOPRAZOLE 40 MG/10 ML VIAL INJ IV ONE (11:45)
[2023-05-16 12:00] VITALS: BP 149/68; PULSE 96; RESP 20; TEMP 98.5; O2SAT 99
[2023-05-16 16:00] VITALS: BP 134/63; PULSE 99; RESP 20; TEMP 98.6; O2SAT 96
[2023-05-16] MEDS ORDERED: OMEP20TA PO (17:30)
[2023-05-16] MEDS ORDERED: GABA-1308 PO (17:30)
[2023-05-16] MEDS ORDERED: ATOR20TA50 PO (17:30)
[2023-05-16] MEDS ORDERED: CHOL20007 PO (17:30)
[2023-05-16] MEDS ORDERED: AMLO1TAB22 PO (17:30)
[2023-05-16] MEDS ORDERED: EMPA1TAB PO (17:30)
[2023-05-16 21:51] VITALS: BP 136/72; PULSE 104; RESP 14; TEMP 98.7; O2SAT 93
[2023-05-16] MEDS: PANTOPRAZOLE 40 MG/10 ML VIAL INJ IV SCH (22:00)
[2023-05-16] MEDS: ATORVASTATIN 20 MG TAB PO SCH (22:00)
[2023-05-17] MEDS: LACTATED RINGER'S 1,000 ML IV SCH ×3 (02:45→17:46)
[2023-05-17 05:00] VITALS: BP 146/76; PULSE 103; RESP 16; TEMP 98.6; O2SAT 98
[2023-05-17] MEDS: METOCLOPRAMIDE HCL 5MG/ml INJ 2ml VIAL IV SCH (05:29)
[2023-05-17] MEDS: InsuLIN REG 1unit/0.01ml Soln (100units/ml) SC SCH ×2 (06:10→11:19)
[2023-05-17] MEDS: ACCU-CHEK COMFORT CURVE STRIP VI SCH ×2 (06:10→11:18)
[2023-05-17 06:48] LABS: Anion Gap 15 (5-15); Carbon Dioxide 24 mmol/L (20-30); Chloride 109 mmol/L (98-107); Potassium 3.2 mmol/L (3.5-5.1); Sodium 148 mmol/L (136-145)
[2023-05-17 06:49] LABS: Basophils # (auto) 0 10 ^3/uL (0-0.2); Basophils % (auto) 0.4 % (0.0-2.0); Eosinophils # (auto) 0.1 10 ^3/uL (0-0.8); Lymphocytes # (auto) 1.1 10 ^3/uL (0.4-5.4); Red Blood Cells 4.58 10^6/uL (4.0-5.20)
[2023-05-17 06:50] LABS: Calcium 8.7 mg/dL (8.7-10.4)
[2023-05-17 06:54] LABS: BUN/Creatinine Ratio 18.1 (10.0-20.0); Blood Urea Nitrogen 15 mg/dL (9-23); Glucose 131 mg/dL (74-106)
[2023-05-17 06:55] LABS: Eosinophils % (auto) 0.9 % (0.0-7.0); Hematocrit 37.6 % (36.0-46.0); Hemoglobin 11.8 g/dL (12.2-16.2); Lymphocytes % (auto) 15.9 % (10.0-50.0); Magnesium 1.9 mg/dL (1.6-2.6); Mean Corpuscular Hemoglobin 25.9 pg (28.0-32.0); Mean Corpuscular Hgb Conc. 31.5 g/dL (32.0-36.0); Mean Corpuscular Volume 82.1 fL (80.0-100.0); Monocytes # (auto) 0.7 10 ^3/uL (0-1.3); Monocytes % (auto) 10.5 % (0.0-12.0); Neutrophils # (auto) 4.9 10 ^3/uL (1.6-8.6); Neutrophils % (auto) 72.3 % (37.0-80.0); Nucleated Red Blood Cells % 0.1 %; Red Cell Distribution Width 14.1 % (11.8-14.3); White Blood Cell 6.7 10^3/uL (4.4-10.8)
[2023-05-17 08:00] VITALS: BP 148/78; PULSE 96; RESP 16; TEMP 98.9; O2SAT 99
[2023-05-17 08:30] VITALS: BP 148/78; PULSE 96; RESP 16; TEMP 98.9
[2023-05-17] MEDS: cefTRIAXone 1GM/50ML D5W 50 ML IV SCH (08:35)
[2023-05-17] MEDS: PANTOPRAZOLE 40 MG/10 ML VIAL INJ IV SCH ×2 (08:35→21:20)
[2023-05-17] MEDS: VERAPAMIL HCL 120 mg ER tab PO SCH (08:37)
[2023-05-17] MEDS: ASPirin 81 mg TAB PO SCH (08:37)
[2023-05-17] MEDS ORDERED: POTASSIUM CHLORIDE 80 MEQ, LIDOCAINE 1% (LOCAL ANESTH.) 6 ML in SODIUM CHL 0.9% 500 ML IV ONE (09:30)
[2023-05-17] MEDS: BENAZEPRIL HCL 10 MG TAB PO SCH (11:03)
[2023-05-17] MEDS: GABAPENTIN 100 MG CAP PO SCH ×2 (14:43→21:21)
[2023-05-17 20:00] VITALS: RESP 17
[2023-05-17 20:28] LABS: COVID19 ANTIGEN SOFIA FIA NEGATIVE (NEGATIVE)
[2023-05-17] MEDS: ATORVASTATIN 20 MG TAB PO SCH (21:20)
[2023-05-18] VITALS (7 sets, daily range): BP systolic 109–146; BP diastolic 60–79; PULSE 97–115; RESP 16–22; TEMP 98.3–98.8; O2SAT 97–100
[2023-05-18] MEDS: LACTATED RINGER'S 1,000 ML IV SCH ×3 (02:45→18:27)
[2023-05-18] MEDS ORDERED: LOPERAMIDE HCL 2 MG CAP/TAB PO PRN (04:00)
[2023-05-18] MEDS: GABAPENTIN 100 MG CAP PO SCH ×3 (05:30→21:25)
[2023-05-18 06:42] LABS: Basophils # (auto) 0 10 ^3/uL (0-0.2); Basophils % (auto) 0.6 % (0.0-2.0); Eosinophils # (auto) 0.1 10 ^3/uL (0-0.8); Hemoglobin 11.1 g/dL (12.2-16.2); Monocytes # (auto) 0.6 10 ^3/uL (0-1.3)
[2023-05-18 06:45] LABS: Eosinophils % (auto) 2.3 % (0.0-7.0); Lymphocytes # (auto) 1.4 10 ^3/uL (0.4-5.4); Lymphocytes % (auto) 24.3 % (10.0-50.0); Mean Corpuscular Hemoglobin 26.8 pg (28.0-32.0); Mean Corpuscular Hgb Conc. 32.7 g/dL (32.0-36.0); Monocytes % (auto) 10.9 % (0.0-12.0); Neutrophils # (auto) 3.4 10 ^3/uL (1.6-8.6); Neutrophils % (auto) 61.9 % (37.0-80.0); Red Blood Cells 4.15 10^6/uL (4.0-5.20); White Blood Cell 5.6 10^3/uL (4.4-10.8)
[2023-05-18] MEDS ORDERED: EMPAGLIFLOZIN 10 MG TAB PO SCH (07:00)
[2023-05-18 07:59] LABS: Alanine Aminotransferase 11 U/L (7-40); Alkaline Phosphatase 62 U/L (46-116); Anion Gap 6 (5-15); Calcium 8.8 mg/dL (8.5-10.1); Carbon Dioxide 26 mmol/L (20-30); Chloride 109 mmol/L (98-107); Glucose 148 mg/dL (74-106); Potassium 3.7 mmol/L (3.5-5.1); Sodium 141 mmol/L (136-145)
[2023-05-18 08:00] LABS: BUN/Creatinine Ratio 15.8 (10.0-20.0); Blood Urea Nitrogen 12 mg/dL (9-23); Triglycerides 49 mg/dL (< 150)
[2023-05-18 08:01] LABS: Albumin 3.1 g/dL (3.2-4.8); Aspartate Aminotransferase 10 U/L (13-40); LDL Cholesterol 61 mg/dL (< 100)
[2023-05-18 08:02] LABS: Bilirubin, Total 0.3 mg/dL (0.2-1.0); Cholesterol 121 mg/dL (< 200); HDL Cholesterol 39 mg/dL (40-59); Total Protein 4.9 g/dL (5.7-8.2)
[2023-05-18 09:10] LABS: Magnesium 1.6 mg/dL (1.6-2.6)
[2023-05-18] MEDS: ASPirin 81 mg TAB PO SCH (09:16)
[2023-05-18] MEDS: VERAPAMIL HCL 120 mg ER tab PO SCH (09:16)
[2023-05-18] MEDS: PANTOPRAZOLE 40 MG/10 ML VIAL INJ IV SCH ×2 (09:17→21:24)
[2023-05-18] MEDS: BENAZEPRIL HCL 10 MG TAB PO SCH (09:17)
[2023-05-18] MEDS: cefTRIAXone 1GM/50ML D5W 50 ML IV SCH (09:17)
[2023-05-18] MEDS ORDERED: ONDANSETRON HCL 4 MG/2 ML VIAL IV PRN (14:05)
[2023-05-18] MEDS ORDERED: VANCOMYCIN HCL 125MG/5ML ORAL SOL PO ONE (15:30)
[2023-05-18] MEDS: ENSURE CLEAR Mixed Berry 8oz Carton PO SCH (18:27)
[2023-05-18] MEDS: VANCOMYCIN HCL 125MG/5ML ORAL SOL PO SCH ×2 (18:28→21:27)
[2023-05-18] MEDS: ATORVASTATIN 20 MG TAB PO SCH (21:24)
[2023-05-19] MEDS: LACTATED RINGER'S 1,000 ML IV SCH ×2 (02:45→10:45)
[2023-05-19 05:00] VITALS: BP_SYST 116; BP_SYST 129; BP_DIAS 67; BP_DIAS 71; PULSE 85; PULSE 93; RESP 20; RESP 22; TEMP 98.6; TEMP 98.7; O2SAT 95; O2SAT 97
[2023-05-19] MEDS: GABAPENTIN 100 MG CAP PO SCH ×2 (05:33→15:05)
[2023-05-19] MEDS: VANCOMYCIN HCL 125MG/5ML ORAL SOL PO SCH ×2 (05:34→13:10)
[2023-05-19 07:52] LABS: Anion Gap 6 (5-15); Carbon Dioxide 27 mmol/L (20-30); Chloride 107 mmol/L (98-107); Potassium 3.1 mmol/L (3.5-5.1); Sodium 140 mmol/L (136-145)
[2023-05-19 07:53] LABS: Calcium 8.4 mg/dL (8.5-10.1)
[2023-05-19 07:58] LABS: BUN/Creatinine Ratio 11.5 (10.0-20.0); Blood Urea Nitrogen 7 mg/dL (9-23); Glucose 142 mg/dL (74-106)
[2023-05-19 08:00] VITALS: PULSE 68
[2023-05-19 08:06] LABS: Basophils # (auto) 0 10 ^3/uL (0-0.2); Eosinophils # (auto) 0.2 10 ^3/uL (0-0.8); Hemoglobin 10.8 g/dL (12.2-16.2); Mean Corpuscular Hemoglobin 26.3 pg (28.0-32.0); Neutrophils # (auto) 2.9 10 ^3/uL (1.6-8.6)
[2023-05-19 08:09] LABS: Basophils % (auto) 0.7 % (0.0-2.0); Eosinophils % (auto) 2.8 % (0.0-7.0); Hematocrit 33.5 % (36.0-46.0); Lymphocytes # (auto) 1.7 10 ^3/uL (0.4-5.4); Lymphocytes % (auto) 32.5 % (10.0-50.0); Mean Corpuscular Hgb Conc. 32.3 g/dL (32.0-36.0); Mean Corpuscular Volume 81.5 fL (80.0-100.0); Monocytes # (auto) 0.5 10 ^3/uL (0-1.3); Nucleated Red Blood Cells % 0.2 %; Red Blood Cells 4.11 10^6/uL (4.0-5.20); Red Cell Distribution Width 13.6 % (11.8-14.3); White Blood Cell 5.4 10^3/uL (4.4-10.8)
[2023-05-19] MEDS ORDERED: POTASSIUM CHL 20 Meq TABLET PO ONE (08:45)
[2023-05-19 08:46] VITALS: BP 118/54; PULSE 86; RESP 21; TEMP 98.7; O2SAT 98
[2023-05-19] MEDS: PANTOPRAZOLE 40 MG/10 ML VIAL INJ IV SCH (10:46)
[2023-05-19] MEDS: VERAPAMIL HCL 120 mg ER tab PO SCH (10:47)
[2023-05-19] MEDS: ASPirin 81 mg TAB PO SCH (10:47)
[2023-05-19] MEDS: BENAZEPRIL HCL 10 MG TAB PO SCH (10:48)
[2023-05-19] MEDS: ENSURE CLEAR Mixed Berry 8oz Carton PO SCH ×2 (10:49→13:11)
[2023-05-19] MEDS ORDERED: VANC125PO PO (10:56)
[2023-05-19 12:55] VITALS: BP 122/64; PULSE 97; RESP 20; TEMP 98.3; O2SAT 97
[2023-05-19 15:13] VITALS: BP 123/68; PULSE 72; RESP 18; TEMP 97.8; O2SAT 94
[2023-05-19 16:31] VITALS: BP 105/58; PULSE 98; RESP 20; TEMP 97.9; O2SAT 97
== END 2023-05-19 15:54 | disposition home or self-care (01) | DRG 248 ==
LOC: ER 11:58 → OVERFLOW 22:52 → EAST 05-16 03:38
PROVIDERS: ADMIT Internal Medicine; ATTEND Internal Medicine
DX: A04.72 Enterocolitis due to Clostridium difficile, not specified as recurrent (principal); N17.0 Acute kidney failure with tubular necrosis; E11.43 Type 2 diabetes mellitus with diabetic autonomic (poly)neuropathy; K52.9 Noninfective gastroenteritis and colitis, unspecified; K31.84 Gastroparesis; N39.0 Urinary tract infection, site not specified; E87.6 Hypokalemia; I48.0 Paroxysmal atrial fibrillation; Z20.822 Contact with and (suspected) exposure to COVID-19; I47.10 Supraventricular tachycardia, unspecified; G89.29 Other chronic pain; I10 Essential (primary) hypertension; Z82.49 Family history of ischemic heart disease and other diseases of the circulatory system; Z83.3 Family history of diabetes mellitus; Z88.8 Allergy status to other drugs, medicaments and biological substances
CPT/HCPCS: 36415; 71045; 74176; 80048; 80053; 80061; 81001; 82306; 82962; 83036; 83605; 83690; 83735; 83970; 84132; 84156; 84300; 84443; 84484; 85025; 87086; 87177; 87426; 87493; 93005; 96361; 96365; 96368; 96375; C9113; G0378; J0696; J1956; J2001; J2405; J2543; J3490

== ENCOUNTER 2023-07-10 14:55 | Emergency (ER) | payer MEDICAID ==
[~2023-07-10] VITALS: Ht 157.5 cm; Wt 75.0 kg
[~2023-07-10 14:55] MED LIST changes: +AMLO1TAB22 PO; +ATOR20TA50 PO; +CHOL20007 PO; -DOXY-346 PO; +EMPA1TAB PO; +GABA-1308 PO; +OMEP20TA PO; +VANC125PO PO
[2023-07-10 15:05] VITALS: BP 143/72; PULSE 104; RESP 18; O2SAT 96
[2023-07-10] MEDS ORDERED: FLUORESCEIN SOD OPTH TEST STRIP RIGHTEYE ONE (15:45)
[2023-07-10] MEDS ORDERED: TETRACAINE HCL 0.5% OPTH(EYE) SOLN 4ML RIGHTEYE ONE (15:45)
== END 2023-07-10 16:24 | disposition home or self-care (01) ==
LOC: ER 14:55
DX: H43.11 Vitreous hemorrhage, right eye (principal); I10 Essential (primary) hypertension; E11.9 Type 2 diabetes mellitus without complications; E78.00 Pure hypercholesterolemia, unspecified; Z88.6 Allergy status to analgesic agent; Z90.710 Acquired absence of both cervix and uterus

== ENCOUNTER 2023-09-09 12:14 | Emergency (ER) | payer MEDICAID ==
[~2023-09-09] VITALS: Ht 157.5 cm; Wt 76.0 kg
[~2023-09-09 12:14] MED LIST changes: -GLIP5TAB12 PO; +GLIP5TAB21 PO
[2023-09-09 12:31] VITALS: BP 123/66; RESP 18; O2SAT 100
[2023-09-09 12:37] VITALS: PULSE 90
== END 2023-09-09 16:19 | disposition left against medical advice (07) ==
LOC: EDBD 12:14 → ER 12:14
DX: R11.2 Nausea with vomiting, unspecified (principal); R10.13 Epigastric pain; Z53.21 Procedure and treatment not carried out due to patient leaving prior to being seen by health care provider
CPT/HCPCS: 93005

== ENCOUNTER 2023-09-10 11:52 | Inpatient (IN) | payer MEDICAID ==
[~2023-09-10] VITALS: Ht 157.5 cm; Wt 71.5 kg
[2023-09-10 15:02] LABS: Basophils # (auto) 0 10 ^3/uL (0-0.2); Basophils % (auto) 0.2 % (0.0-2.0); Eosinophils # (auto) 0 10 ^3/uL (0-0.8); Monocytes # (auto) 0.3 10 ^3/uL (0-1.3); Neutrophils # (auto) 6.6 10 ^3/uL (1.6-8.6)
[2023-09-10 15:04] LABS: Hematocrit 40.4 % (36.0-46.0); Hemoglobin 12.6 g/dL (12.2-16.2); Lymphocytes % (auto) 12.9 % (10.0-50.0); Mean Corpuscular Hemoglobin 25.6 pg (28.0-32.0); Mean Corpuscular Hgb Conc. 31.2 g/dL (32.0-36.0); Mean Corpuscular Volume 82.1 fL (80.0-100.0); Monocytes % (auto) 3.8 % (0.0-12.0); Neutrophils % (auto) 83.1 % (37.0-80.0); Red Blood Cells 4.92 10^6/uL (4.0-5.20); Red Cell Distribution Width 15.3 % (11.8-14.3)
[2023-09-10 15:15] LABS: Partial Thromboplastin Time 24.1 SEC (24.5-34.5); Prothrombin Time 10.5 sec (9.3-11.8)
[2023-09-10 15:18] LABS: Alanine Aminotransferase 16 U/L (7-40); Albumin 4.6 g/dL (3.2-4.8); Alkaline Phosphatase 94 U/L (46-116); Anion Gap 16 (5-15); Aspartate Aminotransferase 11 U/L (13-40); BUN/Creatinine Ratio 28.4 (10.0-20.0); Bilirubin, Total 0.6 mg/dL (0.2-1.0); Blood Urea Nitrogen 38 mg/dL (9-23); Calcium 9.9 mg/dL (8.7-10.4); Carbon Dioxide 21 mmol/L (20-30); Chloride 109 mmol/L (98-107); Glucose 297 mg/dL (74-106); Lipase 33 U/L (12-53); Magnesium 2.5 mg/dL (1.6-2.6); Potassium 3.4 mmol/L (3.5-5.1); Sodium 146 mmol/L (136-145); Total Protein 7.7 g/dL (5.7-8.2)
[2023-09-10] MEDS: FLUORESCEIN SOD OPTH TEST STRIP RIGHTEYE ONE (15:33)
[2023-09-10] MEDS: PROPARACAINE HCL 0.5% OPTH(EYE) SOL 15ML OP ONE (15:33)
[2023-09-10] MEDS: TETRACAINE HCL 0.5% OPTH(EYE) SOLN 4ML EACHEYE ONE (15:57)
[2023-09-10] MEDS: POTASSIUM CHL 20MEQ/100ML 100 ML IV ONE (16:00)
[2023-09-10] MEDS: POTASSIUM EFFERVESENT TAB 25 MEQ PO ONE (16:39)
[2023-09-10] MEDS: SODIUM CHLORIDE 0.9% 1,000 ML IV ONE (16:39)
[2023-09-10] MEDS ORDERED: hydrALAZINE HCL 20 MG/ML VL IV PRN (16:45)
[2023-09-10] MEDS ORDERED: ACETAMINOPHEN 325 MG TAB PO PRN (16:45)
[2023-09-10] MEDS ORDERED: DOCUSATE SOD 100 MG CAP PO PRN (16:45)
[2023-09-10] MEDS ORDERED: DEXTROSE (50%) 50ML SYRG IV PRN (16:45)
[2023-09-10] MEDS ORDERED: MORPHINE SULFATE INJ 2 MG/ml SYRG IV PRN (17:00)
[2023-09-10] MEDS ORDERED: NITROGLYCERIN 0.4 MG SL TAB SL PRN (17:00)
[2023-09-10] MEDS: ACCU-CHEK COMFORT CURVE STRIP VI SCH (18:00)
[2023-09-10 19:30] VITALS: PULSE 102; RESP 13; O2SAT 99
[2023-09-10] MEDS: InsuLIN REG 1unit/0.01ml Soln (100units/ml) SC SCH (20:02)
[2023-09-10] MEDS: PANTOPRAZOLE 40 MG/10 ML VIAL INJ IV ONE (20:04)
[2023-09-10] MEDS: METOCLOPRAMIDE HCL 5MG/ml INJ 2ml VIAL IV SCH (20:04)
[2023-09-10] MEDS: HYDROcodone-ACET 5/325MG TAB PO PRN (20:05)
[2023-09-10] MEDS: SOD CHL 0.45% 1,000 ML IV SCH (20:24)
[2023-09-10 20:34] LABS: Urine Bacteria NONE SEEN /hpf (None Seen); Urine Blood Negative /uL (Negative); Urine Clarity Clear (Clear); Urine Color Colorless (Yellow); Urine Hyaline Cast FEW /lpf (0 - 2); Urine Protein, UAD TRACE (Negative); Urine Specific Gravity 1.021 (1.001-1.035); Urine Urobilinogen Normal (Negative); Urine WBC 33 /hpf (0 - 5); Urine pH 5.5 (5.0-8.0)
[2023-09-10 20:47] VITALS: PULSE 125; RESP 22; O2SAT 98
[2023-09-10 20:48] VITALS: BP 128/66; PULSE 125; RESP 14; TEMP 98.1; O2SAT 95
[2023-09-11] VITALS (10 sets, daily range): BP systolic 123–163; BP diastolic 54–79; PULSE 107–125; RESP 14–22; TEMP 97.8–98.6; O2SAT 95–100
[2023-09-11] MEDS: ONDANSETRON HCL 4 MG/2 ML VIAL IV PRN (02:23)
[2023-09-11 05:36] LABS: Basophils # (auto) 0 10 ^3/uL (0-0.2); Eosinophils # (auto) 0 10 ^3/uL (0-0.8); Lymphocytes # (auto) 1.4 10 ^3/uL (0.4-5.4); Monocytes # (auto) 0.7 10 ^3/uL (0-1.3); Neutrophils # (auto) 5.4 10 ^3/uL (1.6-8.6); White Blood Cell 7.5 10^3/uL (4.4-10.8)
[2023-09-11 05:39] LABS: Basophils % (auto) 0.2 % (0.0-2.0); Hematocrit 38.3 % (36.0-46.0); Hemoglobin 12.1 g/dL (12.2-16.2); Lymphocytes % (auto) 18.7 % (10.0-50.0); Mean Corpuscular Hemoglobin 26.2 pg (28.0-32.0); Mean Corpuscular Hgb Conc. 31.7 g/dL (32.0-36.0); Mean Corpuscular Volume 82.6 fL (80.0-100.0); Neutrophils % (auto) 72.1 % (37.0-80.0); Nucleated Red Blood Cells % 0.1 %; Red Blood Cells 4.63 10^6/uL (4.0-5.20); Red Cell Distribution Width 15.6 % (11.8-14.3)
[2023-09-11 05:41] LABS: Alanine Aminotransferase 13 U/L (7-40); Albumin 4.2 g/dL (3.2-4.8); Alkaline Phosphatase 87 U/L (46-116); Anion Gap 11 (5-15); Aspartate Aminotransferase 11 U/L (13-40); BUN/Creatinine Ratio 25.7 (10.0-20.0); Blood Urea Nitrogen 29 mg/dL (9-23); Calcium 9.8 mg/dL (8.7-10.4); Carbon Dioxide 23 mmol/L (20-30); Chloride 113 mmol/L (98-107); Glucose 151 mg/dL (74-106); Potassium 3.4 mmol/L (3.5-5.1); Sodium 147 mmol/L (136-145)
[2023-09-11 05:42] LABS: Bilirubin, Total 0.6 mg/dL (0.2-1.0); Total Protein 7.1 g/dL (5.7-8.2)
[2023-09-11] MEDS: PANTOPRAZOLE 40 MG/10 ML VIAL INJ IV SCH ×2 (09:29→22:14)
[2023-09-11] MEDS: amLODIPine BESYLATE 5 MG TAB PO SCH (09:32)
[2023-09-11] MEDS: EMPAGLIFLOZIN 10 MG TAB PO SCH (09:32)
[2023-09-11] MEDS: ATORVASTATIN 20 MG TAB PO SCH (09:32)
[2023-09-11] MEDS: cefTRIAXone 1GM/50ML D5W 50 ML IV ONE (13:28)
[2023-09-11] MEDS ORDERED: SODIUM CHLORIDE LOCK 10 ML ONE (14:08)
[2023-09-11] MEDS: metroNIDAZOLE 500MG/100ML 100 ML IV SCH (14:14)
[2023-09-11] MEDS: LIDOCAINE VISCOUS 2% 15ML UD ONE (16:17)
[2023-09-11] MEDS: MIDAZOLAM HCL 5 MG/ML-1ML VIAL ONE (16:20)
[2023-09-11] MEDS: diphenhdrAMINE HCL 50 MG/1 ML VL ONE (16:20)
[2023-09-11] MEDS: fentaNYL CITRATE 100 MCG/2 ML VL ONE (16:20)
[2023-09-11] MEDS: SUCRALFATE 1 GM/10 ML ORAL SUSP PO SCH (17:48)
[2023-09-11] MEDS: METOCLOPRAMIDE HCL 5MG/ml INJ 2ml VIAL IV SCH (22:14)
[2023-09-12] VITALS (8 sets, daily range): BP systolic 120–163; BP diastolic 54–91; PULSE 73–110; RESP 16–20; TEMP 97.9–98.7; O2SAT 96–99
[2023-09-12] MEDS: cefTRIAXone 1GM/50ML D5W 50 ML IV SCH (08:39)
[2023-09-12] MEDS ORDERED: VANCOMYCIN PER PHARMACY 0 MG IV SCH (12:45)
[2023-09-12] MEDS: VANCOMYCIN 1GM/200ML 200 ML IV ONE (15:53)
[2023-09-12] MEDS ORDERED: BISACODYL 10 MG RECT SUPP PR ONE (17:45)
[2023-09-13] VITALS (7 sets, daily range): BP systolic 136–145; BP diastolic 63–73; PULSE 90–107; RESP 14–20; TEMP 97.8–98.5; O2SAT 95–99
[2023-09-13] MEDS: VANCOMYCIN 1GM/200ML 200 ML IV SCH (11:45)
[2023-09-14] VITALS (8 sets, daily range): BP systolic 124–157; BP diastolic 66–80; PULSE 71–104; RESP 17–20; TEMP 97.4–98.5; O2SAT 97–100
[2023-09-14] MEDS: MORPHINE SULFATE INJ 2 MG/ml SYRG IV PRN (06:27)
[2023-09-15] VITALS (8 sets, daily range): BP systolic 123–155; BP diastolic 55–74; PULSE 79–112; RESP 16–22; TEMP 97.9–98.3; O2SAT 99–100
[2023-09-15 02:51] LABS: Chloride 108 mmol/L (98-107); Potassium 2.9 mmol/L (3.5-5.1); Sodium 138 mmol/L (136-145)
[2023-09-15 02:52] LABS: Anion Gap 14 (5-15); Calcium 8.8 mg/dL (8.7-10.4); Carbon Dioxide 16 mmol/L (20-30)
[2023-09-15 02:57] LABS: Blood Urea Nitrogen 8 mg/dL (9-23); Glucose 122 mg/dL (74-106)
[2023-09-15] MEDS: POTASSIUM CHL 20MEQ/100ML 100 ML IV ONE (06:46)
[2023-09-15] MEDS: POTASSIUM CHL 20 Meq TABLET PO ONE (06:52)
[2023-09-15] MEDS: VANCOMYCIN 1GM/200ML 200 ML IV SCH (16:28)
[2023-09-16 01:32] VITALS: BP 134/53; PULSE 112; RESP 18; TEMP 98.5; O2SAT 99
[2023-09-16 05:27] VITALS: BP 139/75; PULSE 101; RESP 18; TEMP 98.5; O2SAT 99
[2023-09-16 08:00] VITALS: PULSE 97; RESP 14; O2SAT 99
[2023-09-16] MEDS ORDERED: CIPR-173 PO (09:31)
[2023-09-16] MEDS ORDERED: SUCR1TAB31 PO (09:31)
[2023-09-16] MEDS ORDERED: PANT40T PO (09:31)
== END 2023-09-16 12:50 | disposition home or self-care (01) | DRG 720 ==
LOC: EDBD 11:52 → ER 11:52 → CENTRAL 16:54 → OVERFLOW 16:54 → CENTRAL 20:43
PROVIDERS: ADMIT Nurse Practitioner Family; ATTEND Family Medicine
PROC: 0DB68ZX Excision of Stomach, Via Natural or Artificial Opening Endoscopic, Diagnostic (ICD-10-PCS; 2023-09-11)
PROC: 0DB58ZX Excision of Esophagus, Via Natural or Artificial Opening Endoscopic, Diagnostic (ICD-10-PCS; 2023-09-11)
PROC: 0DB98ZX Excision of Duodenum, Via Natural or Artificial Opening Endoscopic, Diagnostic (ICD-10-PCS; principal; 2023-09-11 16:13)
DX: A41.9 Sepsis, unspecified organism (principal); N17.9 Acute kidney failure, unspecified; K22.10 Ulcer of esophagus without bleeding; K52.9 Noninfective gastroenteritis and colitis, unspecified; S05.01XA Injury of conjunctiva and corneal abrasion without foreign body, right eye, initial encounter; E11.65 Type 2 diabetes mellitus with hyperglycemia; E86.0 Dehydration; E87.6 Hypokalemia; I10 Essential (primary) hypertension; X58.XXXA Exposure to other specified factors, initial encounter; N39.0 Urinary tract infection, site not specified; E78.00 Pure hypercholesterolemia, unspecified; G89.4 Chronic pain syndrome; K44.9 Diaphragmatic hernia without obstruction or gangrene; K29.70 Gastritis, unspecified, without bleeding; Z88.6 Allergy status to analgesic agent; Z90.710 Acquired absence of both cervix and uterus; Y93.89 Activity, other specified; Y92.89 Other specified places as the place of occurrence of the external cause; Y99.8 Other external cause status
CPT/HCPCS: 36415; 43239; 70450; 74176; 80048; 80053; 80202; 81001; 82565; 82962; 83690; 83735; 84484; 85025; 85610; 85730; 87040; 87086; 96361; 96372; 96374; 96375; C9113; G0378; J1815; J2250; J2405; J3480; J3490

== ENCOUNTER 2024-03-20 17:49 | Emergency (ER) | payer MEDICAID ==
[2024-03-19] MEDS: InsuLIN REG 1unit/0.01ml Soln (100units/ml) IV ONE (18:30)
[~2024-03-20] VITALS: Ht 157.5 cm; Wt 72.3 kg
[~2024-03-20 17:49] MED LIST changes: +CIPR-173 PO; +PANT40T PO; +SUCR1TAB31 PO
[2024-03-20 19:27] LABS: Hematocrit 40.3 % (36.0-46.0); Hemoglobin 12.9 g/dL (12.2-16.2); Mean Corpuscular Hemoglobin 26.5 pg (28.0-32.0); Mean Corpuscular Hgb Conc. 31.9 g/dL (32.0-36.0); Platelet Count (auto) 106 10^3/uL (140-450); Red Blood Cells 4.85 10^6/uL (4.0-5.20); Red Cell Distribution Width 13.8 % (11.8-14.3); White Blood Cell 3.4 10^3/uL (4.4-10.8)
[2024-03-20 19:30] LABS: Band Neutrophils % (manual) 0; Basophils % (manual) 0 (0.0-2.0); Blast Cells 0; Eosinophils % (manual) 0 (0-7); Metamyelocytes % 0; Myelocytes % 0; Promyelocytes % 0; Reactive Lymphocytes 0
[2024-03-20 19:44] LABS: Alanine Aminotransferase 33 U/L (7-40); Alkaline Phosphatase 138 U/L (46-116); Anion Gap 9 (5-15); BUN/Creatinine Ratio 21.8 (10.0-20.0); Blood Urea Nitrogen 17 mg/dL (9-23); Carbon Dioxide 24 mmol/L (20-31); Chloride 104 mmol/L (98-107); Glucose 203 mg/dL (74-106); Potassium 3.9 mmol/L (3.5-5.1); Sodium 137 mmol/L (136-145)
[2024-03-20 19:45] VITALS: BP 130/63; PULSE 65; RESP 16; TEMP 98.3; O2SAT 100
[2024-03-20 19:45] LABS: Albumin 4.5 g/dL (3.2-4.8); Aspartate Aminotransferase 17 U/L (13-40)
[2024-03-20 19:46] LABS: Bilirubin, Total 0.5 mg/dL (0.2-1.0); Total Protein 6.9 g/dL (5.7-8.2)
[2024-03-20 19:55] LABS: Lymphocytes % (manual) 65 (10.0-50.0); Monocytes % (manual) 4 (0-12)
[2024-03-20 19:56] LABS: Ovalocytes FEW; Platelet Estimate Decreased
[2024-03-20 20:59] LABS: Rapid Influenza A Negative (Negative); Rapid Influenza B Negative (Negative)
[2024-03-20 21:13] LABS: COVID19 ANTIGEN SOFIA FIA NEGATIVE (NEGATIVE)
[2024-03-20] MEDS ORDERED: IPRAAER6 IN (21:22)
[2024-03-20] MEDS ORDERED: AZITTAB PO (21:22)
== END 2024-03-20 21:30 | disposition home or self-care (01) ==
LOC: ER 17:49
DX: J40 Bronchitis, not specified as acute or chronic (principal); R53.1 Weakness; I10 Essential (primary) hypertension; E11.9 Type 2 diabetes mellitus without complications; E78.5 Hyperlipidemia, unspecified; Z20.822 Contact with and (suspected) exposure to COVID-19; Z90.710 Acquired absence of both cervix and uterus
CPT/HCPCS: 36415; 71045; 80053; 82962; 84484; 85007; 85027; 87426; 87804; 93005

== ENCOUNTER 2025-03-29 06:26 | Emergency (ER) | payer MEDICAID ==
[~2025-03-29] VITALS: Ht 157.5 cm; Wt 81.6 kg
[~2025-03-29 06:26] MED LIST changes: +AZITTAB PO; +IPRAAER6 IN
[2025-03-29 06:28] VITALS: TEMP 97.4
--- NOTE | 2025-03-29 06:42 | ED.PDOC ---
Musculoskeletal HPI Comments This is a 64 year old female presenting to the ED with chief complaint of fall injury. Patient reports that this morning at around 0545, she had felt dizzy and nauseous when waking up. Patient relays that when getting out of bed, she had slipped and fell onto her right side, injuring her right hand and right eyebrow. Patient denies any numbness, weakness, tingling, headache, LOC, or chest pain. Chief Complaint: Fall Injury Time Seen by MD: 06:32 Primary Care Provider: TREVOR Reviewed Notes: Nurses Notes, Medications, Allergies Allergies: Coded Allergies: Ibuprofen (Verified Allergy, Unknown, 10/31/16) Home Meds Active Scripts Ipratropium-Albuterol (COMBIVENT RESPIMAT) Respimat Aer, 1 EA IN Q4HP PRN, #1 AER Prov:PETRE MANCIA MD 03/20/24 Azithromycin (Zithromax Z-Steve) 250 Mg Tab, 250 MG PO DAILY for 5 Days, #6 TAB take 2 pills on day 1, then one pill on days 2-5 Prov:PETER MANCIA MD 03/20/24 Ciprofloxacin Hcl (Cipro) 500 Mg Tab, 1 TAB PO BID, #20 TAB Prov:BENI WILD MD 09/16/23 Sucralfate (CARAFATE) 1 Gm Tab, 1 GM PO QID, #120 TAB Prov:BENI WILD MD 09/16/23 Pantoprazole Sodium Sesquihydr (Pantoprazole Sodium) 40 Mg Tab, 40 MG PO BID, #60 TAB Prov:BENI WILD MD 09/16/23 Vancomycin Hcl (Vancomycin Po) 125 Mg So, 125 MG PO Q6HR for 10 Days, #40 ML Prov:PAUL HDZ RESIDENT 05/19/23 Ondansetron (Zofran) 4 Mg Tab, 1 TAB PO Q6HR, #15 TAB Prov:POOL [employer]A [employer] 10/16/22 Verapamil Hcl (Verapamil Hcl Er) 120 Mg Tab, 1 TAB PO DAILY, #90 TAB 1 Refill Prov:POOL [employer] 10/16/22 Reported Medications Cholecalciferol (VITAMIN D3) 2,000 Unit Tab, 1 TAB PO DAILY, #30 TAB 5 Refills 05/16/23 Empagliflozin (Jardiance) 10 Mg Tab, 10 MG PO DAILY, TAB 05/16/23 Atorvastatin Calcium (ATORVASTATIN CALCIUM) 20 Mg Tab, 1 TAB PO DAILY, #30 TAB 5 Refills 05/16/23 Amlodipine Besylate (Amlodipine Besylate) 5 Mg Tab, 10 MG PO DAILY for 30 Days, MG 05/16/23 Omeprazole (Gnp Omeprazole) 20 Mg Tab, 1 TAB PO DAILY, #90 TAB 1 Refill 05/16/23 Gabapentin (Gabapentin) 100 Mg Cap, 100 MG PO TID 05/16/23 Glipizide (Glipizide) 5 Mg Tab, 1 TAB PO DAILY 10/13/22 [Simvastatin] (Simvastatin) No Conflict Check, 20 PO HS 08/10/12 Aspirin (Asa) 81 Mg Ch, PO DAILY 08/09/12 Benazepril Hcl (Benazepril Hcl) 20 Mg Tab, DAILY 08/09/12 Information Source: Patient, Relative Mode of Arrival: Ambulatory Location: Right Extremity Location: Hand, Other (Rt eyebrow) Prehospital treatment: None Severity: Moderate Able to Move Extremity: Yes Bear Weight: Fully Pain: Moderate Mechanism: Spontaneous Circumstances: Fall Onset of Symptoms: After Trauma Symptoms: Pain DVT Risk Factors: NONE Last Tetanus: Unknown Associated signs and symptoms: Hand pain, Other (Rt eyebrow pain) Past Medical History PAST MEDICAL HISTORY: DM, High Lipids, HTN Surgical History: Hysterectomy [employer] History: No Pertinent [employer] History Family History Family History: Reviewed,noncontributory to illness, No family hx of Heart lucretia, No family hx of HTN Family History (Other): Lupus Social History Smoker: Non-Smoker Alcohol: Denies ETOH Use Drugs: Denies Drug Use Lives In: Home Constitutional: denies: chills, diaphoresis, fatigue, fever, malaise, sweats, weakness, others EENTM: denies: blurred vision, double vision, ear bleeding, ear discharge, ear drainage, ear pain, ear ringing, eye pain, eye redness, hearing loss, mouth pain, mouth swelling, nasal discharge, nose bleeding, nose congestion, nose pain, photophobia, tearing, throat pain, throat swelling, voice changes, others Respiratory: denies: cough, hemoptysis, orthopnea, SOB at rest, shortness of breath, SOB with excertion, stridor, wheezing, others Cardiovascular: denies: chest pain, dizzy spells, diaphoresis, Dyspnea on exertion, edema, irregular heart beat, left arm pain, lightheadedness, palpitations, PND, syncope, others Gastrointestinal: reports: nausea; denies: abdomen distended, abdominal pain, blood streaked bowels, constipated, diarrhea, dysphagia, difficulty swallowing, hematemesis, melena, poor appetite, poor fluid intake, rectal bleeding, rectal pain, vomiting, others Genitourinary: denies: abnormal vagina bleeding, burning, dyspareunia, dysuria, flank pain, frequency, hematuria, incontinence, pain, , vagina discharge, urgency, others Neurological: reports: dizziness; denies: fainting, headache, left sided numbness, left sided weakness, numbness, paresthesia, pre-existing deficit, right sided numbness, right sided weakness, seizure, speech problems, tingling, tremors, weakness, others Musculoskeletal: reports: others (Rt hand pain, Rt eyebrow pain); denies: back pain, gout, joint pain, joint swelling, muscle pain, muscle stiffness, neck pain Integumetry: denies: bruises, change in color, change in hair/nails, dryness, laceration, lesions, lumps, rash, wounds, others Allergic/Immunocompromised: denies: Difficulty Healing, Frequent Infections, Hives, Itching, others Hematologic/Lymphatic: denies: anemia, blood clots, easy bleeding, easy bruising, swollen glands, others Endocrine: denies: excessive hunger, excessive sweating, excessive thirst, excessive urination, flushing, intolerance to cold, intolerance to heat, unexplained weight gain, unexplained weight loss, others Psychiatric: denies: anxiety, bipolar disorder, depression, hopeless, panic disorder, schizophrenia, sleepless, suicidal, others All Other Systems: Reviewed and Negative Physical Exam General Appearance: No Apparent Distress HEENT: Normal ENT Inspection, Pharynx Normal, TMs Normal Neck: Full Range of Motion, Non-Tender, Normal, Normal Inspection Respiratory: Chest Non-Tender, Lungs Clear, No Accessory Muscle Use, No Respiratory Distress, Normal Breath Sounds Cardiovascular: No Edema, No JVD, No Murmur, No Gallop, Normal Peripheral Pulses, Regular Rate/Rhythm Breast Exam: Deferred Gastrointestinal: No Organomegaly, Non Tender, No Pulsatile Mass, Normal Bowel Sounds, Soft Genitalia: Deferred Pelvic: Deferred Rectal: Deferred Extremities: No calf tenderness, Normal capillary refill, No pedal edema Musculoskeletal : Location: Right Extremity Location: Hand Apperance: Limited ROM, Tenderness: Mild Neurologic: Alert, bill board poster II-XII nml as Tested, No Motor Deficits, Normal Affect, Normal Mood, No Sensory Deficits Cerebellar Function: Normal Reflexes: Normal Skin: Dry, Normal Color, Warm, Other (Abrasion to the lateral right eye) Lymphatic: No Adenopathy Was a procedure done? Was a procedure done?: No Differential Diagnosis EXT Differential Diagnosis: Fracture, Contusion X-Ray, Labs, Meds, VS Vital Signs Date Time Temp Pulse Resp B/P (MAP) Pulse Ox O2 Delivery O2 Flow Rate FiO2 03/29/25 06:28 97.4 68 18 154/[address] indicates: 1. No evidence of acute intracranial hemorrhage, mass effect or hydrocephalus. 2. Hyperdensity in the right ocular globe. Correlate with ophthalmologic examination. Right hand XR indicates: 1. No acute fracture or dislocation is identified about the right hand. 2. Periarticular erosions are noted suggesting inflammatory arthropathy. The patient will be discharged The patient was given tramadol here in the emergency department's The patient is to follow up with the solar thermal installer for exploration of the hypodensity in the right ocular globe The patient understands and agrees with the management. Images Reviewed?: Images reviewed and evaluated by me Time of 1ST Reevaluation: 07:33 Reevaluation 1ST: Unchanged Patient Education/Counseling: Diagnosis, Treatment, Prognosis Family Education/Counseling: No Family Present Departure 1 Departure Time of Disposition: 07:32 Impression: Primary Impression: History of fall Additional Impressions: Blunt head trauma Qualified Codes: S09.8XXA - Other specified injuries of head, initial encounter Contusion of right hand Qualified Codes: S60.221A - Contusion of right hand, initial encounter Disposition: HOME / SELF CARE / HOMELESS Condition: Fair Discharged With: Self Critical Care Note Critical Care Time?: No Stability Stability form required: No Heart Score Heart Score: Heart Score Response (Comments) Value History N/A 0 EKG N/A 0 Age N/A 0 Risk Factors N/A 0 Troponin N/A 0 Total 0 I personally scribed for TAWNYA GUZMAN MD ([email or web address]) on 03/29/25 at 06:42. Electronically submitted by Kenyon Tong ([email or web address]). I personally scribed for TAWNYA GUZMAN MD ([email or web address]) on 03/29/25 at 07:28. Electronically submitted by Kenyon Tong ([email or web address]). TAWNYA GUZMAN MD Mar 29, 2025 06:42
--- NOTE | 2025-03-29 07:17 | DVH ---
EXAM: XY R HAND 3 VIEW XRAY HISTORY: Fall COMPARISON: None. TECHNIQUE: Three views of the right hand were performed. FINDINGS: No acute fracture or dislocation are identified about the right hand. There are periarticular erosio ns for example at the base of the fifth proximal phalanx. IMPRESSION: 1. No acute fracture or dislocation is identified about the right hand. 2. Periarticular erosions are noted suggesting inflammatory arthropathy.
--- NOTE | 2025-03-29 07:26 | DVH ---
EXAM: CT HEAD WITHOUT CONTRAST INDICATION: Trauma/fall. TECHNIQUE: CT of the head without intravenous contrast. Coronal and sagittal reformatted images are s ubmitted. Radiation Dose : 1. Head: CT Dose: CTDI volume is 55.5 mGy. Dose-length product is 1091.7 mGy*cm The dose indicators for CT are the volume Computed Tomography (CT) Dose Index (CTDIvol) and the Dose Length Product (DLP), and are measured in units of mGy and mGy-cm, respectively. These indicators are not patient dose, but values generated from the CT scanner acquisition factors. The report includes radiation exposure data for exposures received during this examination. All CT scans at this medical facility are performed using dose modulation techniques as appropriate to a performed exam including the following: Automated exposure control was utilized; adjustment of the MA and/or KV according to patient size; and use of iterative reconstruction technique. COMPARISON: CT HEAD WITHOUT CONTRAST on DOS: 09/10/23. FINDINGS: There is no evidence of acute intracranial hemorrhage, extra-axial collection, mass effect, midline s hift, herniation or hydrocephalus. The ventricles, sulci and cisterns are age appropriate. The palacios-white differentiation is intact. The visualized paranasal sinuses and mastoid air cells are clear. No depressed calvarial fracture. The surrounding soft tissues are unremarkable. There is a hyperdensity in the right ocular globe. IMPRESSION: 1. No evidence of acute intracranial hemorrhage, mass effect or hydrocephalus. 2. Hyperdensity in the right ocular globe. Correlate with ophthalmologic examination.
[2025-03-29 08:11] VITALS: BP 165/87; PULSE 75; RESP 18; O2SAT 99
== END 2025-03-29 08:20 | disposition home or self-care (01) ==
LOC: ER 06:26
DX: S00.93XA Contusion of unspecified part of head, initial encounter (principal); S60.221A Contusion of right hand, initial encounter; R11.0 Nausea; I10 Essential (primary) hypertension; E11.9 Type 2 diabetes mellitus without complications; Z88.6 Allergy status to analgesic agent; Z90.710 Acquired absence of both cervix and uterus; Z91.81 History of falling; W06.XXXA Fall from bed, initial encounter; Y93.89 Activity, other specified; Y92.89 Other specified places as the place of occurrence of the external cause; Y99.8 Other external cause status
CPT/HCPCS: 70450; 73130